=== PATIENT | male | born 1965 | race Caucasian/White ===

== ENCOUNTER 2016-10-12 12:00 | Day surgery (SDC) | payer OTHER ==
[~2016-10-12] VITALS: Ht 177.8 cm; Wt 106.6 kg
[~2016-10-12 12:00] MED LIST: CITA40TA13 PO; Lactated Ringer's 1,000 ML IV ONE; OMEP40CA36 PO; TAMS0.4C98 PO
[2016-10-12] MEDS ORDERED: Propofol 10,000 mCg/mL 20 mL Inj ONE (12:01)
[2016-10-12 12:44] VITALS: BP 129/90; PULSE 52; RESP 14; O2SAT 97
[2016-10-12] MEDS ORDERED: Lactated Ringer's 1,000 ML IV SCH (13:04)
--- NOTE | 2016-10-12 13:04 | PCM.HPANE ---
Patient Data Surgeon Admitting Provider: Attending Provider:Kapil Cerrato MD Primary Care Physician:Aryan Sheridan MD Other Provider:[facility] Reason for Visit Rectal Bleeding, Gerd Ht/WT & BMI Height (Feet): 5 Height (Inches): 10 Weight (Kilograms): 106.59 Body Mass Index 33.00 Allergies Coded Allergies: Sulfa (Sulfonamide Antibiotics) (Verified Allergy, Unknown, 10/11/16) Past Anesthesia History Anesthesia History: Denies:: Abnormal Airway, Difficult Intubation Diabetes History Hx Diabetes?: No MRSA MRSA: No Medications Reported Medications Tamsulosin (Flomax)0.4 Mg Capsule0.4 Mg PO DAILY Ref 0 10/11/16 Omeprazole 40 Mg Capsule.dr40 Mg PO DAILY Ref 0 10/11/16 Citalopram 40 Mg [id number] Mg PO DAILY 30 Days Ref 0 10/11/16 History HEENT History: Positive for:: Hearing Problem (mild ) Denies:: Abnormal Airway Difficult Intubation Hx of Heart Problems?: No Hx of Respiratory Problem?: No Neurological History: Denies:: CVA Hx of GI Problems?: Yes Gastrointestinal History: Positive for:: Gastroesphageal Reflux (takes omeprazole) Liver Disease (enlarged and splean) Other GI Pertinent History: regurgitation Psycho Social History: Positive for:: Hx Depression Hx Surgeries?: No Hx Any Other Health Problems?: Yes Hx Diabetes: No Hx Alcohol Use: Yes Stop/Bang Treated for Sleep Apnea?: No Do You Have a CPAP Machine?: No S-Snoring: Do You Snore Loudly: Yes T-Tired: feel tired, fatigued: No O-Obsered: Observed not breath: Yes P-Blood Pressure: treated: No B- Body Mass Index > 35 kg/m2: No A- Age over 50: Yes N- Neck Large Circumference: No G- Gender Male: Yes SINGH Total Score: 4 SINGH Risk Assessment: Low Risk, <3 Yes Risk Assessment Category Category 1A: Patient has history of documented sleep apnea, and HAS NOT received any narcotic, sedative or anesthesia administration during this stay. Category 1B: Patient has history of documented sleep apnea, and HAS received any narcotic , sedative or anesthesia administration during this stay Category 2: Patient has SUSPECTED Obstructive Sleep Apnea, and HAS received any narcotic , sedative or anesthesia administration during this stay. Category 3: Patient has SUSPECTED Obstructive Sleep Apnea and HAS NOT received narcotic, sedative or anesthesia administration during this stay. Category 4: Outpatient in Procedural Areas with known sleep apnea or who screen positive for High Risk via the STOP/BANG questionnaire. Exam Exam Vital Signs Vital Signs Date Time Temp Pulse Resp B/P Pulse Ox O2 Delivery O2 Flow Rate FiO2 10/12/16 12:44 36.7 52 14 129/90 97 Room Air General Appearance: Oriented X3 HEENT/AIRWAY: MP 2 Lungs: Normal Air Movement Heart: Regular Rate/Rhythm Plan Impression Patient chart reviewed, patient interviewed and anesthestic plan with risks, benefits, and alternatives discussed, and informed consent obtained. ASA Physical Status: ASA2 Mod Systemic Disease Anesthetic Plan: MAC Bene/Risks/Altern/Consents: Yes HP Complete Prior to Induction: Yes Meliton Ng MD Oct 12, 2016 13:04
[2016-10-12] MEDS ORDERED: Ondansetron 2 mg/mL 2 mL Inj IVPUSH PRN (13:05)
[2016-10-12] MEDS ORDERED: MetoCLOpramide 5 mg/mL 2 mL Inj IVPUSH PRN (13:05)
[2016-10-12 13:36] VITALS: BP 109/75; PULSE 52; RESP 16; O2SAT 96
--- NOTE | 2016-10-12 13:43 | PCM.ANEP1 ---
Post Anesthesia Phase 1 PACU Phase 1 Assessment Vital Signs Vital Signs Date Time Temp Pulse Resp B/P Pulse Ox O2 Delivery O2 Flow Rate FiO2 10/12/16 13:36 36.3 52 16 109/75 96 Room Air 10/12/16 12:44 36.7 52 14 129/90 97 Room Air Anesthetic Administered: MAC Level of Alertness: Awake, talking Pain: No Nausea or Vomiting: No Oxygen Delivery: Room Air Lungs: Normal Air Movement Meliton Ng MD Oct 12, 2016 13:43
--- NOTE | 2016-10-12 13:43 | PCM.ANEP2 ---
Post Anesthesia Evaluation ASA/CMS Post Anesthesia VS in Patient's Normal Range?: Yes Resp Stable; Airway Patent?: Yes CV Function & Hydration Stable: Yes Mental Status Recovered?: Yes Pain control Satisfactory?: Yes N/V Control Satisfactory?: Yes Meliton Ng MD Oct 12, 2016 13:43
[2016-10-12 13:46] VITALS: BP 108/78; PULSE 50; RESP 14; O2SAT 96
--- NOTE | 2016-10-12 14:01 | ENDO ---
[address] [address] ENDOSCOPY PROCEDURE PATIENT: NUPUR OLEARY : 1965 MR#: [id number] ADMIT: 10/12/2016 JOB ID: [id number] OPERATION: Esophagogastroduodenoscopy with biopsy and colonoscopy. PREOPERATIVE DIAGNOSIS(ES): Gastroesophageal reflux disease and rectal bleeding. POSTOPERATIVE DIAGNOSIS(ES): Mild nonerosive gastritis. ANESTHESIA: Monitored anesthesia care. COMPLICATIONS: None. ESTIMATED BLOOD LOSS: Minimal. DESCRIPTION OF PROCEDURE: After the risks and benefits were explained to the patient, informed consent was obtained. After anesthesia was administered, the upper endoscope was inserted through mouth, intubating the esophagus, stomach, and second portion of duodenum, and the mucosa examined. After the procedure was done, the scope was withdrawn and the procedure terminated. A colonoscope was inserted from the rectum to the cecum and the mucosa carefully examined. Prep of the patient was excellent. After the procedure was done, the scope was withdrawn and the procedure terminated. FINDINGS: Upon inspection of the esophagus, the esophagus was normal, without masses, ulcers, or lesions. Z-line located at 38 cm from the incisors. Upon entering the stomach there was mild nonerosive gastritis that was seen. No masses, ulcers, or lesions were seen. Retroflexion was normal. Duodenum, bulb, first and second portion normal. Biopsies were taken in the antrum, body of the stomach, and the distal esophagus. Upon inspection of the anus, no masses, hemorrhoids, ulcers, or fissures that were seen. Throughout the entire examination there were no polyps, masses, or lesions. Retroflexion was normal. IMPRESSION: 1. Normal colonoscopy. 2. Mild nonerosive gastritis. RECOMMENDATIONS: 1. Await pathology results. 2. Follow up GI Clinic as needed.
--- NOTE | 2016-10-16 12:08 | PATH ---
SURGICAL PATHOLOGY Attending Physician:Kapil Cerrato MD CASE STATUS: Signed Out PATIENT NAME: NUPUR OLEARY PID: [id number] : 1965 DATE COLLECTED:10/12/2016 00:00 SPECIMEN: 1: Stomach, Antrum, Biopsy 2: Gastric, Biopsy 3: Esophagus, Biopsy CLINICAL HISTORY: 1: ANTRUM BIOPSY 2: GASTRIC BODY BIOPSY 3: DISTAL ESOPHAGUS BIOPSY FINAL DIAGNOSIS: 1. Antrum, Biopsy: Mucosal hyperemia without associated significant inflammation involving antral mucosa. Negative for evidence of Helicobacter. Negative for intestinal metaplasia. Negative for dysplasia and malignancy. 2. Gastric Body Biopsy: Mucosal hyperemia without associated significant inflammation involving fundic mucosa. Negative for evidence of Helicobacter. Negative for intestinal metaplasia. Negative for dysplasia and malignancy. 3. Distal Esophagus Biopsy: Squamous epithelium with nonspecific reactive changes. No gastric-type epithelium identified. Eosinophils are not increased. ICD10 R10.13 GROSS DESCRIPTION: The specimen is received in three formalin filled containers labeled with the patient's name. 1. The specimen is sublabeled "antrum" and consists of 3 portions of tissue which aggregate to 0.4 x 0.3 x 0.2 CM. The specimen is entirely submitted in cassette 1A. 2. The specimen is sublabeled "gastric body" and consists of 2 portions of tissue which aggregate to 0.3 x 0.3 x 0.2 CM. The specimen is entirely submitted in cassette 2A. 3. The specimen is sublabeled "distal esophagus" and consists of a 0.4 x 0.3 x 0.2 CM portion of tissue which is entirely submitted in cassette 3A. 10/15/2016 [facility] ICD-9 CODES: CPT CODES: 1: 24252 2: 29771 3: 87161 Electronically Signed Out Forrest George MD [facility] [address] [facility], [place] [address] Technical component performed at [facility], [facility] [address], [address]
== END 2016-10-12 23:59 | disposition home or self-care (01) ==
LOC: END 12:00
PROVIDERS: ATTEND Internal Medicine Gastroenterology
DX: K62.5 Hemorrhage of anus and rectum (principal); K29.70 Gastritis, unspecified, without bleeding; K21.9 Gastro-esophageal reflux disease without esophagitis; N40.0 Benign prostatic hyperplasia without lower urinary tract symptoms; E78.5 Hyperlipidemia, unspecified; F32.9 Major depressive disorder, single episode, unspecified; F10.10 Alcohol abuse, uncomplicated
CPT/HCPCS: 43239; 45378; J7120